=== PATIENT | male | born 1930 | race Caucasian/White ===

== ENCOUNTER 2017-02-16 23:15 | Emergency (ER) | payer MEDICARE, BC ==
[2017-02-16] MEDS ORDERED: Sodium Chloride 0.9% 10 ML Syringe FLUSH PRN (23:25)
[2017-02-16] MEDS ORDERED: Labetalol 20 MG/4 ML Syringe IVPUSH ONE (23:29)
[2017-02-17 00:21] LABS: CHLORIDE,CL 104 mmol/L (98-107); SODIUM,NA 137 mmol/L (136-145)
[2017-02-17 02:46] VITALS: BP 133/67
--- NOTE | 2017-02-17 06:12 | ER ---
Date of Service: 02/16/2017 SUBJECTIVE: Eulogio presents to the emergency room with complaints of hypertension. The patient states he has a history of hypertension, and he states that he did take his blood pressure numerous times tonight. He states that his blood pressure was approximately 186/90, and he decided to come into the emergency room. The patient states that he was also experiencing headache with this. He was not experiencing any substernal chest pain but did feel mildly short of breath. PAST MEDICAL HISTORY: 1. Hypertension. 2. Dyslipidemia. 3. Hypothyroidism. 4. Glaucoma. 5. GERD. 6. Coronary artery disease. MEDICATIONS: 1. Crestor. 2. Zantac. 3. Metoprolol tartrate. 4. Zestril. 5. Synthroid. 6. Plavix. 7. Lumigan. 8. Aspirin. ALLERGIES: Aspirin and niacin. REVIEW OF SYSTEMS: General: No fever or chills. HEENT: No sore throat, rhinorrhea, or congestion. Respiratory: No shortness of breath. Cardiac: Denies any substernal chest pain. No jaw, arm, neck, or back pain. Gastrointestinal: No nausea, vomiting, or diarrhea. No melena, hematochezia, or hematemesis. Genitourinary: Denies any dysuria. Neurologic: Does complain of headache. Denies any blurred vision. Denies any numbness or tingling in his extremities or face. PHYSICAL EXAMINATION: General: An 86-year-old male who is in no acute distress. Vital Signs: Blood pressure initially was 158/41, pulse rate was 55, temperature was 98.8, and respiratory rate was approximately 18. Skin: Warm, pink, and dry. HEENT: Head is normocephalic and atraumatic. Eyes, PERRLA. Extraocular movements are intact. Ears, TMs are clear. Mouth, oral mucosa is moist. No erythema or exudate noted in the hypopharynx. Neck: Supple without masses. There is no lymphadenopathy. Lungs: Clear to auscultation. Heart: Regular rate and rhythm. Abdomen: Soft, nontender. There is no hepatosplenomegaly noted. There are no masses noted. Extremities: Without edema. Neurologic: The patient is alert, oriented, and answers all questions appropriately. His speech is fluent. His gait is within normal limits. LABORATORY DATA: WBCs 10.4, hemoglobin is 11.4, and platelets are 242. PT 10.1, INR 0.9. Chemistry: Sodium is 137, potassium is 4.4, chloride is 104, bicarb is 29, BUN is 37, creatinine is 1.5, GFR is 44, glucose is 96, calcium is 9.7, and corrected calcium is 10.34. Total bilirubin is 0.3, AST is 15, ALT is 17, and alkaline phosphatase is 83. Troponin is less than 0.017. Total protein is 6.1. CT scan of the patient's brain did reveal some diffuse small vessel disease but did not reveal any acute bleed or other pathology. DIAGNOSTIC DATA: A 12-lead EKG was obtained showing a sinus rhythm without any acute ST or T-wave abnormalities. EMERGENCY ROOM COURSE: The patient was quite anxious on arrival to the ER. After talking and reassuring the patient, his blood pressure did return to normal without any pharmacological intervention. The patient remained stable in my care in the emergency room. ASSESSMENT: 1. Hypertension. 2. Anxiety. PLAN: The patient will be discharged. I did advise him to return to the emergency room if he develops worsening headache, confusion, decreased level of consciousness, chest pain, or shortness of breath. I advised him not to repeatedly take his blood pressure on the same arm as this can lead to false readings. I did advise him to follow up in the clinic in the next 7 to 10 days for recheck of his blood pressure. All questions were answered. HIRAK: 02/17/2017 00:41:17 MODL: 02/17/2017 02:46:41 /[id number]
== END 2017-02-17 00:39 | disposition home or self-care (01) ==
LOC: VM.ED 23:15
DX: I10 Essential (primary) hypertension (principal); F41.9 Anxiety disorder, unspecified; E78.5 Hyperlipidemia, unspecified; E03.9 Hypothyroidism, unspecified; K21.9 Gastro-esophageal reflux disease without esophagitis; I25.10 Atherosclerotic heart disease of native coronary artery without angina pectoris; Z88.6 Allergy status to analgesic agent
CPT/HCPCS: 36415; 70450; 71010; 80053; 84484; 85025; 85610; 93005; 99284; 99284-GF